=== PATIENT | male | born 1980 | race Caucasian/White ===

== ENCOUNTER 2019-07-22 12:01 | Emergency (ER) | payer BC ==
[2019-07-22] MEDS ORDERED: Ketorolac *IM* INJ* 60 MG/2 ML VIAL IM ONE (13:51)
[2019-07-22] MEDS ORDERED: Dexamethasone IV* 4 MG/ML 1 ML (4 MG) IM ONE (13:51)
[2019-07-22] MEDS ORDERED: HYDROcodone/ACETAMIN 5-325 MG* 1 TAB PO ONE (13:52)
[2019-07-22] MEDS ORDERED: Orphenadrine Citrate IV* 30 MG/ML 2 ML VIAL IM ONE (13:52)
--- NOTE | 2019-07-22 13:52 | ED ---
Neck Pain - HPI Summary HPI Summary: 38 year old M presenting to [facility] complains of worsening bilateral neck pain rated 7/10 in severity currently x3 days. States he was shoveling snow on Thursday 07/19. No fever, chills, headache, chest pain, shortness of breath. No recent trauma or injury to the neck. Symptoms aggravated by change in head position. Symptoms alleviated by nothing. No hx neck pain. - History of Current Complaint Chief Complaint: EDNeckComplaint Stated Complaint: NECK PAIN PER PT Time Seen by Provider: 07/22/19 13:40 Hx Obtained From: Patient Onset/Duration Of Injury/Symptoms: Days - 3 Mechanism Of Injury: No Known Trauma Timing: Constant, Lasting Days - 3 Onset/Duration: Started days ago - 3, Still Present Severity Currently: Moderate Pain Intensity: 7 Pain Scale Used: 0-10 Numeric Aggravating Factors: Other: - change in head position Alleviating Factors: Nothing Associated Signs & Symptoms: Positive: Negative - fever, chills, headache, chest pain, shortness of breath - Allergies/Home Medications Allergies/Adverse Reactions: Allergies Allergy/AdvReac Type Severity Reaction Status Date / Time No Known Allergies Allergy Verified 07/22/19 12:12 PMH/Surg Hx/FS Hx/Imm Hx Respiratory History: Denies: Hx Asthma Sensory History: Reports: Hx Contacts or Glasses Opthamlomology History: Reports: Hx Contacts or Glasses - Surgical History Surgery Procedure, Year, and Place: wisdom teeth; toenail Infectious Disease History: No Infectious Disease History: Denies: Hx Clostridium Difficile, Hx Hepatitis, Hx Human Immunodeficiency Virus (HIV), Hx of Known/Suspected MRSA, Hx Shingles, Hx Tuberculosis, Hx Known/ Suspected VRE, Hx Known/Suspected VRSA, History Other Infectious Disease, Traveled Outside the [place] in Last 30 Days - Family History Known Family History: Negative: Cardiac Disease, Hypertension, Diabetes - Social History Alcohol Use: Occasionally Hx Substance Use: Yes Substance Use Type: Reports: Marijuana Hx Tobacco Use: No Smoking Status (MU): Never Smoked Tobacco Review of Systems Negative: Fever, Chills Negative: Chest Pain Negative: Shortness Of Breath Positive: Other - bilateral neck pain Negative: Headache All Other Systems Reviewed And Are Negative: Yes Physical Exam - Summary Physical Exam Summary: VITAL SIGNS: Reviewed. GENERAL: Patient is a well-developed and nourished MALE who is lying comfortable in the stretcher. Patient is not in any acute respiratory distress. HEAD AND FACE: No signs of trauma. No ecchymosis, hematomas or skull depressions. No sinus tenderness. EYES: PERRLA, EOMI x 2, No injected conjunctiva, no nystagmus. EARS: Hearing grossly intact. Ear canals and tympanic membranes are within normal limits. MOUTH: Oropharynx within normal limits. NECK: There is stiffness and tenderness in bilateral paraspinal neck muscle region, no C spine tenderness, no difficulty swallowing CHEST: Symmetric, no tenderness at palpation. LUNGS: Clear to auscultation bilaterally. No wheezing or crackles. CVS: Regular rate and rhythm, S1 and S2 present, no murmurs or gallops appreciated. ABDOMEN: Soft, non-tender. No signs of distention. No rebound, no guarding, and no masses palpated. Bowel sounds are normal. EXTREMITIES: FROM in all major joints, no edema, no cyanosis or clubbing. NEURO: Alert and oriented x 3. No acute neurological deficits. Speech is normal and follows commands. SKIN: Dry and warm. Triage Information Reviewed: Yes Vital Signs On Initial Exam: Initial Vitals Temp Pulse Resp BP Pulse Ox 98.1 F 70 20 139/90 97 07/22/19 12:12 07/22/19 12:12 07/22/19 12:12 07/22/19 12:12 07/22/19 12:12 Vital Signs Reviewed: Yes Procedures - Sedation Patient Received Moderate/Deep Sedation with Procedure: No Diagnostics - Vital Signs Vital Signs Temp Pulse Resp BP Pulse Ox 07/22/19 12:12 98.1 F 70 20 139/90 97 - Laboratory Lab Statement: Any lab studies that have been ordered have been reviewed, and results considered in the medical decision making process. - CT Cervical spine CT Interpretation Completed By: Radiologist Summary of CT Findings: 1. RETROPHARYNGEAL SOFT TISSUE SWELLING POSSIBLY SECONDARY TO HYDROXY APPETITE DEPOSITION DISEASE VERSUS INFECTIOUS RETROPHARYNGITIS. 2. MILD TO MODERATE CERVICAL SPONDYLOSIS. ED physician has reviewed this report. Re-Evaluation - Re-Evaluation First Eval Re-Evaluation Time: 15:40 Change: Improved Comment: patient feels better. he states that the pain has significantly decreased. he is able to move his neck from side to side and forward Neck Course/Dx - Course Assessment/Plan: 38 year old M presenting to [facility] complains of worsening bilateral neck pain rated 7/10 in severity currently x3 days. States he was shoveling snow on Thursday 07/19. No fever, chills, headache, chest pain, shortness of breath. No recent trauma or injury to the neck. Symptoms aggravated by change in head position. Symptoms alleviated by nothing. No hx neck pain. C spine CT IMPRESSION: 1. RETROPHARYNGEAL SOFT TISSUE SWELLING POSSIBLY SECONDARY TO HYDROXYAPATITE DEPOSITION DISEASE VERSUS INFECTIOUS RETRO PHARYNGITIS. 2. MILD TO MODERATE CERVICAL SPONDYLOSIS. Patient reports that he has some sore throat. Therefore, I believe the patient may have pharyngitis. After the patient was given Decadron, Toradol, [place] and Norflex, the patients symptoms have significantly improved. At this time the patient reports a history better. He doesnt have any trismus, difficulty swallowing, denies any swelling of the tongue or lips. The patient is eating and drinking with no difficulty. Therefore, the patient was discharged home with follow-up with PCP. Patient was strongly recommended to return to the emergency room if he develops any difficulty swallowing, painful swallowing, swelling of the throat or feeling that his throat is closing or any other symptoms. The patient understands and agrees. - Diagnoses Differential Dx/HQI/PQRI: Positive: Arthritis, Cervical Fracture, Dislocation, Sprain, Strain Provider Diagnoses: Pharyngitis, Neck pain Discharge ED - Sign-Out/Discharge Documenting (check all that apply): Patient Departure - Discharge - Discharge Plan Condition: Stable Disposition: HOME Prescriptions: Amoxicillin/Clavulanate TAB* [Augmentin TAB 875*] 875 mg PO BID #10 tab Hydrocodone/Acetaminophen [[place] 5-325 Tablet] 1 each PO Q6H PRN #10 tablet MDD 4 PRN Reason: Pain - Moderate Ibuprofen TAB* [Motrin TAB* 800 MG] 800 mg PO Q8H PRN #30 tab PRN Reason: Pain - Moderate Methocarbamol TAB* [Robaxin 500 MG TAB*] 500 mg PO TID PRN #12 tab PRN Reason: Spasms - Muscle Patient Education Materials: Pharyngitis (ED), Neck Pain (ED) Referrals: [facility] [Outside] - 3 Days Additional Instructions: Follow up with [facility] in 3 days. Return to the Emergency Department for new or worsening symptoms. - Billing Disposition and Condition Condition: STABLE Disposition: Home - Attestation Statements Document Initiated by Scribe: Yes Documenting Scribe: Nadia Pandey Provider For Whom Michaelle is Documenting (Include Credential): Mark Blake MD Scribe Attestation: Nadia Jewell, scribed for Mark Blake MD on 07/23/19 at 0731. Scribe Documentation Reviewed: Yes Provider Attestation: The documentation as recorded by the joseibNadia lawrence accurately reflects the service I personally performed and the decisions made by , Mark Blake MD Status of Scribe Document: Viewed
[2019-07-22 16:01] VITALS: BP 131/98
== END 2019-07-22 15:37 | disposition home or self-care (01) ==
LOC: ED 12:01
DX: M54.2 Cervicalgia (principal); J02.9 Acute pharyngitis, unspecified
CPT/HCPCS: 72125; 96372; 99282; J1100; J1885; J2360; Q9967